=== PATIENT | male | born 1990 ===

== ENCOUNTER → 2019-10-06 | Outpatient (CLI) | payer OTHER ==
--- NOTE | 2019-10-06 10:44 | RAD ---
CERVICAL SPINE WO CONTRAST History:Reason: NECK PAIN WITH LEFT ARM RADICULOPATHY X 2 YEARS, NKI / Spl. Instructions: / History: Technique: Multiplanar, multi sequential noncontrast MR imaging was performed of the cervical spine. Comparison: None Findings: Normal vertebral body height and alignment. No fracture. No pathologic signal abnormality within the cervical spinal cord. C2-C3: No canal or neuroforaminal narrowing. C3-C4: Minimal disc bulge. No canal narrowing. Left facet arthropathy. Minimal left neuroforaminal narrowing. No right neuroforaminal narrowing. C4-C5: Minimal disc bulge. No canal narrowing. Mild left uncovertebral and facet arthropathy. Mild left neuroforaminal narrowing. No right neuroforaminal narrowing. C5-C6: Minimal disc bulge. No canal narrowing. Left uncovertebral and facet arthropathy. Moderate left neuroforaminal narrowing. C6-C7: Minimal disc bulge. No canal narrowing. Left uncovertebral and facet arthropathy. Mild left neuroforaminal narrowing. No right neuroforaminal narrowing. C7-T1: No canal narrowing. No neuroforaminal narrowing. Impression: 1. Mild multilevel cervical spondylosis with left neuroforaminal narrowing most prominent C5-C6. Electronically signed by: Ramiro Manley DO (10/06/2019 10:41 AM) [id number]
== END | disposition home or self-care (01) ==
LOC: MRI 12:38
DX: M47.892 Other spondylosis, cervical region (principal); M48.02 Spinal stenosis, cervical region; R20.0 Anesthesia of skin
CPT/HCPCS: 72141